=== PATIENT | male | born 1985 | race Caucasian/White ===

== ENCOUNTER 2025-02-13 10:33 | Observation (INO) ==
[2025-02-13] MEDS: ONDANSETRON ODT 4 MG TABLET TL STA (11:20)
[2025-02-13 11:36] LABS: BASOPHILS # (AUTO) 0.1 10^3/uL (0.0-0.1); BASOPHILS % (AUTO) 0.8 %; EOSINOPHILS # (AUTO) 0.1 10^3/uL (0.0-0.7); EOSINOPHILS % (AUTO) 1.2 %; HCT - HEMATOCRIT 44.4 % (42.0-52.0); HGB - HEMOGLOBIN 15.2 g/dL (14.0-18.0); LYMPHOCYTES # (AUTO) 2.1 10^3/uL (1.5-3.5); LYMPHOCYTES % (AUTO) 22.6 %; MEAN CORPUSCULAR HEMOGLOBIN 30.5 pg (27.0-31.0); MEAN CORPUSCULAR HGB CONC 34.2 g/dL (32.0-36.0); MEAN PLATELET VOLUME 8.5 fL (7.4-11.4); MONOCYTES # (AUTO) 0.8 10^3/uL (0.0-1.0); MONOCYTES % (AUTO) 8.1 %; NEUTROPHILS # (AUTO) 6.2 10^3/uL (1.5-6.6); NEUTROPHILS % (AUTO) 66.9 %; PLT - PLATELET COUNT 368 10^3/uL (130-450); RED BLOOD COUNT 4.99 10^6/uL (4.70-6.10); RED CELL DISTRIBUTION WIDTH 12.8 % (12.0-15.0); WHITE BLOOD COUNT 9.3 x10^3/uL (4.8-10.8)
[2025-02-13] MEDS: LORazepam 2 MG/ML VIAL IVP STA ×2 (11:44→11:46)
[2025-02-13] MEDS: SODIUM CHLORIDE 0.9% 1,000 ML IV STA (11:46)
--- NOTE | 2025-02-13 11:56 | ED Physician Documentation ---
History of Present Illness Stated complaint Stated Complaint: WITHDRAWL DETOX Chief complaint Chief Complaint: General History obtained from History obtained from: Patient History of Present Illness Timing: Prior to arrival Additonal information Additional information: Patient is a 39-year-old male presenting to the emergency department with alcohol with drawl concerns. He has past medical history of neurofibromatosis type I and a history of alcohol abuse. He was seen here in the emergency department yesterday for symptoms of low back pain. Patient at that time he eloped from the emergency department. He notes he did this because he was going into withdrawals yesterday. He notes his last drink was this morning. He usually drinks about 18 beers a day. He went to rehab about 2 months ago but started to drink late shortly after this. He notes he has had 1 seizure in the past when trying to withdraw and has been admitted to the hospital for this b efore. He has no fevers only persistent tremors at this time. He has had some persistent nausea and vomiting this morning unable to keep down any water. He denies any hallucinations. His last drink was this morning.He is on citalopram at home but is not on any other medications. Meds/Allgy Home Medications Ambulatory Orders Medication Instructions Recorded Confirmed No Known Home Medications 02/12/25 02/12/25 Allergies Allergies Allergy/AdvReac Type Severity Reaction Status Date / Time No Known Drug Allergies Allergy Verified 02/13/25 10:47 PFSH Active Problems All Active Problems (Updated 02/13/25 @ 13:38 by Carly Rivera PA-C) Alcohol withdrawal (Acute) Back pain (Acute) Social History Social History Do you feel safe in your home environment?: Yes Suffered physical, verbal, emotional, or financial abuse?: No Exam Exam Vital Signs: Vital Signs x48h Temp Pulse Resp BP Pulse Ox O2 Flow Rate 02/13/25 12:46 91 16 104/64 96 2 02/13/25 10:43 36.6 C 90 22 120/75 100 Constitutional normal general appearance HENMT normocephalic and head/scalp atraumatic Neck/C-Spine visual inspection normal Lymph no lymphadenopathy noted Chest inspection of chest normal Respiratory breath sounds equal bilaterally, normal respiratory effort and clear to auscultation bilaterally Cardiovascular normal heart rate noted, regular rhythm noted, no gallop, no rub and no murmur Gastrointestinal abdomen normal to inspection No abdominal tenderness at this time.Old surgical scar noted to left upper abdomen Genitourinary no CVA tenderness Back/Pelvis spine normal to inspection, no thoracic spine tenderness and no lumbar spine tenderness Psychiatry Patient appears anxious he is ANO x 3 he is answering questions appropriately but often looking around. Significant tremor noted on examination to bilateral upper and lower extremities. Patient unable to sit still here in the emergency department Results Vitals Vitals: Vital Signs - 24 hr 02/12/25 19:05 02/12/25 19:24 02/13/25 10:43 Temperature 36.6 C Temperature Source Temporal Artery Scan Pulse Rate 90 Respiratory Rate 22 Blood Pressure 120/75 O2 Saturation 100 O2 Source Room air Room air If not protocol: Oxygen Flow, liters/minute Pain Intensity 9 8 02/13/25 12:46 Temperature Temperature Source Pulse Rate 91 Respiratory Rate 16 Blood Pressure 104/64 O2 Saturation 96 O2 Source Nasal cannula If not protocol: Oxygen Flow, liters/minute 2 Pain Intensity Oxygen O2 Source Nasal cannula Labs Labs: Laboratory Tests 02/13/25 02/13/25 11:27 11:29 WBC 9.3 RBC 4.99 Hgb 15.2 Hct 44.4 MCV 89.0 MCH 30.5 MCHC 34.2 RDW 12.8 Plt Count 368 MPV 8.5 Neut # (Auto) 6.2 Lymph # (Auto) 2.1 [place] # (Auto) 0.8 Eos # (Auto) 0.1 Baso # (Auto) 0.1 Absolute Nucleated RBC 0.00 Nucleated RBC % 0.0 Sodium 141 Potassium 3.6 Chloride 102 Carbon Dioxide 25 Anion Gap 14.0 H BUN 13 Creatinine 0.8 Estimated GFR (MDRD) 109 Glucose 93 Calcium 9.5 Magnesium 2.0 Total Bilirubin 0.6 AST 12 ALT 13 Alkaline Phosphatase 70 Total Protein 7.2 Albumin 4.8 Globulin 2.4 Albumin/Globulin Ratio 2.0 Lipase 20 Ethyl Alcohol 178.1 PD Medical Decision Making ED course Complexity details: reviewed old records and reviewed results ED course: Patient is a 39-year-old male presenting to the emergency department with withdrawal symptoms last drink was this morning. He is a regular drinker with about 18 beers a day. He notes significant tremors at this time and has had a history of seizures with withdrawal. He notes history of neurofibromatosis and has been seen here yesterday but he eloped due to withdrawal symptoms at that time. Patient CIWA score of 20 on arrival. Basic labs obtained fluids started and a dose of Ativan 2 mg given here in the ED. Patient will most likely benefit from a CT scan of his lower spine to further evaluate possible mass at this time patient is having too significant tremors to obtain CT. Will monitor labs and assess if patient can be sent for CT here in the ED. Patient at 12:00 had an episode of hypoxia about 10 minutes after receiving Ativan 2 mg IV he was placed on 3 L nasal cannula I evaluated patient at this time and he is awake answering questions no acute distress will hold off on any flumenazil at this time. Patient was decreased to 2 L nasal cannula. Patient's labs returned no signs of white count he does have an anion gap of 14 he is receiving normal saline fluids most likely secondary to alcohol use and dehydration from persistent nausea and vomiting. Patient was given Zofran and banana bag here in the ED to help with withdrawal symptoms. His alcohol level returned at 178 although elevated could be low level for patient given history of 18 beers a day. Patient was given banana bag here in the ED he was weaned off of oxygen but remains fatigued and sleepy. Given high alcohol level and high CIWA score on evaluation here in the emergency department I recommend patient be admitted overnight for observation status given history of alcohol withdrawal and seizures. I discussed with Dr. Gera colby hospitalistWho recommends obtaining chest x-ray given hypoxia with small dose of Ativan here in the ED. However he is agreeable patient should be admitted to observation status and chest x-ray pending here in the ED.. Patient iis in agreement with this plan. Discharge Plan Discharge Patient Disposition: [facility] DC/Xfer Condition: Stable Clinical Impression: Alcohol withdrawal Prescriptions: No Action No Known Home Medications Print Language: Maldivian
[2025-02-13 11:59] LABS: ALBUMIN 4.8 g/dL (3.2-5.5); BILIRUBIN,TOTAL 0.6 mg/dL (0.2-1.0); CALCIUM 9.5 mg/dL (8.5-10.3); CREATININE 0.8 mg/dL (0.6-1.3); POTASSIUM 3.6 mmol/L (3.5-4.5); TOTAL PROTEIN 7.2 g/dL (6.4-8.9)
[2025-02-13] MEDS: THIAMINE INJ 100 MG, MAGNESIUM SULFATE 2 GM, MULTIVITAMIN 10 ML, FOLIC ACID INJ 1 MG in... IV STA (12:46)
--- NOTE | 2025-02-13 14:03 | XRAY Report ---
PROCEDURE: XR Chest 1V INDICATIONS: eval for hypoxia TECHNIQUE: One view of the chest was acquired. COMPARISON: None. FINDINGS: Surgical changes and devices: None. Lungs and pleura: No pleural effusions or pneumothorax. No consolidation. Mediastinum: Mediastinal contours appear normal. Heart size is normal. Bones and chest wall: No suspicious bony lesions. Overlying soft tissues appear unremarkable. IMPRESSION: No acute cardiopulmonary process. Reviewed by: Ricardo Mccracken MD on 02/13/2025 2:02 PM PDT Approved by: Ricardo Mccracken MD on 02/13/2025 2:02 PM PDT Station ID: [id number]
[2025-02-13] MEDS: chlordiazePOXIDE 25 MG CAPSULE PO SCH (15:31)
--- NOTE | 2025-02-13 15:49 | HISTORY & PHYSICAL EXAMINATION ---
<Statement entered by Edgardo Boss MD - 02/13/25 19:01> Pt examined and chart reviewed. I agree with the note below with the following additions and corrections. Pt is a bit of a vague historian. Tired during exam, but easily rousable to voice and give brief answers. 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 He has followed with neurosurgery outpt, reportedly had bx 1 yr ago but no follow up. Reports numbness in L leg. Denies drug use other than etoh. Notes he vapes. No known lung disease. Mils SOB, no cough. Notes chest pain across upper chest that is constant, not pleuritic. Feels tremulous but better after ativan in ED. Exam: young man lying in bed, NAD, sclera anicteric, MMM, LCTAB, nonlabored RRR, S1S2, no edema abd soft, NT, ND, BS+, no HSM Somnolent at times, easily rousable to voice, CN 2-12 intact, strength 5/5 UE, 5/5 ankle flexion and extension, mild tremor in hands, no tongue fasciculation. Yawning repeatedly throughout exam. labs and imaging reviewed. 1. etoh use d/o, etoh withdrawal: librium, ativan per CIWA, thiamine, MVI. Obtain Utox to ensure no other intoxication or withdrawal syndrome. 2. acute hypoxic respiratory failure: episode in ED of desat to 75% after getting ativan. Likely due to sedation from benzo and etoh intoxication. No evidence for lung disease by history, CXR clear, exam unremarkable. Now sat mid 90s on RA. If hypoxia recurs, consider further w/u, including r/o PE, vaping associated lung injury. 3. anion gap metabolic acidosis: ketosis from etoh. Cont ivf and trend BMP in am. 4. neurofibromatosis: no signs of spinal impingement. Needs outpt follow up. dvt ppx: lovenox Chief Complaint Chief Complaint Chief Complaint: Alcohol withdrawal, tremors, nausea History of Present Illness Admitted From Admitted From:: Temporary home History Obtained From Records Reviewed: [place] History obtained from: Patient and ED team Exam Limitations: Obtunded History of Present Illness HPI Comment/Other: Oniel is a 39-year-old male with a history of back pain and neurofibromatosis 1 being admitted today with tremors and nausea due to alcohol withdrawal. He reports that he has had seizures due to alcohol withdrawals in the past. The patient is not a reliable historian due to his current mental status. He last drank alcohol this morning, he reports. He reports having left-sided numbness from his hip down. He states that he recently went through rehabilitation in [place], [place]. The patient reported to ED medical team that he drinks 18 beers per day. He states that he does not have any family or friends who could be emergency contacts. Oniel reports that he currently lives in [place], but is staying with a friend temporarily on [facility]. He states his primary care doctor is in [place]. Meds/Allgy Home Medications Ambulatory Orders Medication Instructions Recorded Confirmed citalopram 20 mg tablet 10 mg PO DAILY 02/13/25 02/13/25 clonidine HCl 0.1 mg tablet 0.1 mg PO TID 02/13/25 02/13/25 ibuprofen 800 mg tablet 800 mg PO TID PRN pain 02/13/25 02/13/25 Allergies Allergies Allergy/AdvReac Type Severity Reaction Status Date / Time No Known Drug Allergies Allergy Verified 02/13/25 10:47 PFSH Active Problems All Active Problems (Updated 02/13/25 @ 16:07 by Aletha Kemp) Nausea (Acute) Nausea & vomiting (Acute Unknown) Tremor due to substance withdrawal (Acute) Alcohol withdrawal (Acute) Back pain (Acute) Social History Social History Smoking Status: Unknown if ever smoked Do you dip or chew tobacco?: No Relationship: Level: Assisted Do you feel safe in your home environment?: Yes Suffered physical, verbal, emotional, or financial abuse?: No Substance Use: denies use POLST Patient has POLST: No Review of Systems Status of ROS: unobtainable due to mental status (Patient was unable to complete ROS d/t mental status.) Gastrointestinal Reports: Nausea Musculoskeletal Reports: Other (Patient reports that he has left-sided numbness from his hip down.) Neurological Reports: Other (Patient reports history of seizures with alcohol withdrawal.) Prior Level of Functionality: Able; functioning without assistance. Exam Exam Vital Signs: Vital Signs x48h Temp Pulse Resp BP Pulse Ox O2 Flow Rate 02/13/25 14:00 95 16 109/63 94 02/13/25 12:46 91 16 104/64 96 2 02/13/25 10:43 36.6 C 90 22 120/75 100 Constitutional Patient is obtunded with slow speech, drowsy appearance, and repetitive yawning. HENMT Normocephalic. Moist mucus membranes. Eyes PERRL. EOMs intact. No nystagmus. Neck/C-Spine Normal visual inspection of C-spine. Respiratory Lungs clear on auscultation bilaterally. No wheezing, rhonchi, or rales. Cardiovascular RRR. Gastrointestinal Soft, non-tender, and no distention. Back/Pelvis Deferred. Extremities Normal inspection of extremities. No deformities. Neurology Bilateral hand tremors. Slow speech. 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 Psychiatry Decreased LOC. Skin [place] pallor. No rash or lesions. Conclusion/Plan Problem List (1) Alcohol withdrawal: Plan: Patient presented to ED with tremors and nausea. He reported a history of seizures from alcohol withdrawal. Patient's blood alcohol level was 178.1 mg/dL. He reported drinking this morning 02/13. His CIWA score in ED before administration of lorazepam was 20. He has been prescribed Ondansetron 4mg once, Librium 50mg PO Q8H, a [place] Rx 1 PO daily, and 1mg Lorazepam IVP Q30M PRN. He was given IV fluids. Additionally, he was given 100mg thiamine IV. A chest XR in the ED showed no cardiopulmonary pathologies. He will be monitored for clinical signs of improvement including decreased tremors, nausea, alert and calm LOC. Additionally, CIWA score decreased to 8 or below would be needed prior to discharge. Qualifiers: Complication of substance-induced condition: uncomplicated Qualified Code(s): F10.930 - Alcohol use, unspecified with withdrawal, uncomplicated (2) Back pain: Plan: The patient presented to the ED on 02/12 with a complaint of back pain, but eloped according to the emergency team. He returned to the ED on 02/13 due to symptoms of alcohol withdrawal. Physical exam was limited by the patient's decreased LOC. Patient was ambulatory in ED. Patient reported back pain with left-sided numbness from his hip down. He reported previously that he has been diagnosed with neurofibromatosis 1. The patient will be encouraged to follow up with his primary care provider. Qualifiers: Back pain laterality: unspecified Back pain location: low back pain C hronicity: unspecified Sciatica presence: without sciatica Qualified Code(s): M54.50 - Low back pain, unspecified Plan The goal of therapy is to prevent seizures and improve AW symptoms including tremors and nausea. A CIWA score of 8 or less along with clinical signs would indicate readiness to discharge. In addition, rehabilitation and following up with primary care should be discussed with the patient. Resources for basic necessities and possible care coordination should be discussed with the patient. Lab Results Lab results reviewed: Yes 02/13/25 11:29 02/13/25 11:29 Diagnostic Imaging Results Diagnostic Imaging Results: positive Final report reviewed
--- NOTE | 2025-02-13 16:31 | PHARMACY PROGRESS NOTE ---
Best Possible Medication History Admit Date and Time: 02/13/25 [id number] Home Medications Medication Instructions Recorded Confirmed Type citalopram 20 mg tablet 10 mg PO DAILY 02/13/25 02/13/25 History clonidine HCl 0.1 mg tablet 0.1 mg PO TID 02/13/25 02/13/25 History ibuprofen 800 mg tablet 800 mg PO TID PRN pain 02/13/25 02/13/25 History Processed by: Pharmacy (Medication reconciliation completed by Canoe Inspector FinalMicaela) Medications reviewed in ED?: No Medication History completed: Yes Patient Interview: Completed Secondary Source(s): Insurance records [facility] Statement: As the person ultimately responsible for medication therapy, providers are able to order a medication from an existing home medication list in [facility] via the "Reconcile Routine" prior to Confirmation of that medication by sales and support center agent. Such practice is discouraged except when the physician, in their clinical judgment, deems that a medical need exists for a medication without regard to previous use.
[2025-02-13] MEDS: LORazepam 2 MG/ML VIAL IVP PRN (20:37)
[2025-02-13] MEDS: ONDANSETRON 4 MG/2 ML VIAL IVP PRN (21:24)
[2025-02-13] MEDS: cloNIDine 0.1 MG TABLET PO SCH (21:34)
[2025-02-14] MEDS: ACETAMINOPHEN 325 MG TABLET PO PRN (00:27)
[2025-02-14 05:26] VITALS: TEMP 98.2
[2025-02-14 05:58] LABS: BASOPHILS # (AUTO) 0.1 10^3/uL (0.0-0.1); BASOPHILS % (AUTO) 0.8 %; EOSINOPHILS # (AUTO) 0.2 10^3/uL (0.0-0.7); EOSINOPHILS % (AUTO) 2.5 %; HCT - HEMATOCRIT 38.8 % (42.0-52.0); HGB - HEMOGLOBIN 13.1 g/dL (14.0-18.0); LYMPHOCYTES # (AUTO) 2.4 10^3/uL (1.5-3.5); LYMPHOCYTES % (AUTO) 26.1 %; MEAN CORPUSCULAR HEMOGLOBIN 31.3 pg (27.0-31.0); MEAN CORPUSCULAR HGB CONC 33.8 g/dL (32.0-36.0); MEAN CORPUSCULAR VOLUME 92.8 fL (80.0-94.0); MEAN PLATELET VOLUME 8.6 fL (7.4-11.4); MONOCYTES % (AUTO) 10.4 %; NEUTROPHILS # (AUTO) 5.4 10^3/uL (1.5-6.6); NEUTROPHILS % (AUTO) 59.8 %; PLT - PLATELET COUNT 284 10^3/uL (130-450); RED BLOOD COUNT 4.18 10^6/uL (4.70-6.10); WHITE BLOOD COUNT 9.1 x10^3/uL (4.8-10.8)
[2025-02-14 06:07] LABS: ALBUMIN 3.9 g/dL (3.2-5.5); ALBUMIN/GLOBULIN RATIO 2.2 (1.0-2.2); BILIRUBIN,TOTAL 1.6 mg/dL (0.2-1.0); CALCIUM 8.5 mg/dL (8.5-10.3); CREATININE 0.8 mg/dL (0.6-1.3); MAGNESIUM 2.2 mg/dL (1.7-2.3); POTASSIUM 3.7 mmol/L (3.5-4.5); TOTAL PROTEIN 5.7 g/dL (6.4-8.9)
[2025-02-14 07:15] LABS: BILIRUBIN,URINE NEGATIVE (NEGATIVE); GLUCOSE, URINE (UA) NEGATIVE (NEGATIVE); KETONES,URINE (UA) 15 mg/dL (NEGATIVE); LEUKOCYTE ESTERASE, URINE SMALL (NEGATIVE); NITRITE,URINE NEGATIVE (NEGATIVE); OCCULT BLOOD,URINE NEGATIVE (NEGATIVE); PROTEIN,URINE TRACE mg/dL (NEGATIVE); UROBILINOGEN,URINE 1 (NORMAL) E.U./dL (NORMAL)
[2025-02-14 07:24] LABS: AMPHETAMINE SCREEN,URINE NEGATIVE (NEGATIVE); BARBITURATE SCREEN,UR NEGATIVE (NEGATIVE); BENZODIAZEPINES SCREEN, URINE POSITIVE (NEGATIVE); BUPRENORPHINE SCREEN, URINE NEGATIVE (NEGATIVE); CLARITY,URINE HAZY (CLEAR); COCAINE SCREEN URINE NEGATIVE (NEGATIVE); METHADONE SCREEN, URINE NEGATIVE (NEGATIVE); METHAMPHETAMINES SCREEN, URINE NEGATIVE (NEGATIVE); OPIATE SCREEN, URINE NEGATIVE (NEGATIVE); OXYCODONE SCREEN, URINE NEGATIVE (NEGATIVE); TRICYCLIC ANTIDEPRESSANT,URINE NEGATIVE (NEGATIVE)
[2025-02-14 07:25] LABS: THC CANNABINOID SCREEN, URINE NEGATIVE (NEGATIVE)
[2025-02-14 07:33] LABS: BACTERIA,URINE Rare /HPF (None Seen); RBC,URINE None Seen /HPF (0-5); SQUAMOUS EPITHELIAL CELL,UR NONE SEEN (<= Few); WBC CLUMPS,URINE PRESENT; WBC,URINE >25 /HPF (0-3)
[2025-02-14 07:43] VITALS: BP 110/58; O2SAT 95
[2025-02-14] MEDS: THIAMINE 100 MG TABLET PO SCH (08:54)
[2025-02-14] MEDS: CITALOPRAM 10 MG TABLET PO SCH (08:54)
[2025-02-14] MEDS: PRENATAL VITAMIN TABLET PO SCH (08:54)
[2025-02-14] MEDS: ENOXAPARIN 40 MG/0.4 ML SYRINGE SUBQ SCH (08:55)
--- NOTE | 2025-02-14 15:22 | Discharge Summary ---
Discharge Summary Admit Date: 02/13/25 Discharge Date: 02/14/25 Discharging Provider: Edgardo Boss MD DIAGNOSES Admission Diagnoses: 1. etoh use disorder, abuse, withdrawal 2. acute hypoxic respiratory failure 3. anion gap metabolic acidosis 4. neurofibromatosis, sacral tumor Discharge Diagnoses with Status of Each Condition: 1. etoh use disorder, abuse, withdrawal 2. acute hypoxic respiratory failure, resolved 3. anion gap metabolic acidosis, resolved 4. neurofibromatosis, sacral tumor HPI History of Present Illness: 39-year-old male with a history of back pain and neurofibromatosis 1 being admitted today with tremors and nausea due to alcohol withdrawal. He reports that he has had seizures due to alcohol withdrawals in the past. The patient is not a reliable historian due to his current mental status. He last drank alcohol the morning of admission, he reports. He reports having left-sided numbness from his hip down, which is chronic. He states that he recently went through rehabilitation in [place], [place]. The patient reported to ED medical team that he drinks 18 beers per day. He states that he does not have any family or friends who could be emergency contacts. Oniel reports that he currently lives in [place], but is staying with a friend temporarily on [facility]. He states his primary care doctor is in [place]. HOSPITAL COURSE Hospital Course: 1. etoh use d/o, etoh withdrawal: Pt presented with tremulousness, irritability, and moderate withdrawal symptoms. He was treated with librium, ativan per CIWA, thiamine, MVI. A utox was negative aside from benzodiazepines, which he had received here. His symptoms improved quickly and he required infrequent prn ativan doses overniht. On day of discharge he feels much better. Up walking to bathroom without problems. Tolerating po intake. Notes he has not had a seizure in many years and he wishes to stop librium quickly and go home. We offered outpt addiction resources which pt declined. He was interested in trying gabapentin to help with addiction, as he did not tolerate naltrexone in the past 2. acute hypoxic respiratory failure: episode in ED of desat to 75% after getting ativan. Likely due to sedation from benzo and etoh intoxication. No evidence for lung disease by history, CXR clear, exam unremarkable. Shortly thereafter O2 sat mid 90s on RA and he remained stable on RA overnight. 3. anion gap metabolic acidosis: ketosis from etoh. Treated with iv fluid. Pt's po intake normalized. Anion gap resolved. 4. neurofibromatosis, sacral tumor: Pt noted chronic numbness extending down Left upper leg, no weakness. No signs of spinal impingement. Pt reports he had a biopsy last year and has plans to follow up with neurosurgery outpt. ALLERGIES Allergies Allergy/AdvReac Type Severity Reaction Status Date / Time No Known Drug Allergies Allergy Verified 02/13/25 10:47 MEDICATIONS Ambulatory Orders Medication Instructions Recorded Confirmed citalopram 20 mg tablet 10 mg PO DAILY 02/13/25 02/13/25 clonidine HCl 0.1 mg tablet 0.1 mg PO TID 02/13/25 02/13/25 ibuprofen 800 mg tablet 800 mg PO TID PRN pain 02/13/25 02/13/25 gabapentin 300 mg capsule 300 mg PO QPM #30 caps 02/14/25 PHYSICAL EXAM AT DISCHARGE Vital Signs: Vital Signs x48h Temp Pulse Resp BP Pulse Ox 02/14/25 07:42 36.8 C 71 16 110/58 L 95 young man lying in bed, NAD, sclera anicteric, MMM, LCTAB, nonlabored RRR, S1S2, no edema abd soft, NT, ND, BS+, no HSM AAOx3, CN 2-12 intact, strength 5/5 UE and LE bilat, no tremor, no tongue fasciculation. Sensation intact aside from reported decreased to light touch over L lateral thigh. LABS 02/14/25 05:49 02/14/25 05:49 TIME SPENT Time Spent in Discharge (Minutes): 25 Discharge Plan Discharge Patient Disposition: Home, Self Care Condition: Stable Medically Cleared Date:: 02/14/25 Prescriptions: New gabapentin 300 mg Capsule 300 mg PO QPM Qty: 30 0RF Continued clonidine HCl 0.1 mg tablet 0.1 mg PO TID ibuprofen 800 mg tablet 800 mg PO TID PRN (Reason: pain) citalopram 20 mg tablet 10 mg PO DAILY Diet: Regular Interventions: Discharge Last Done: 02/14/25 12:21 Discharge Checklist - Nursing Last Done: 02/14/25 12:21 Plan of Treatment: You have been started on a medicine called gabapentin to help with alcohol use. It is important for your health that you stop drinking alcohol. Contact your primary care provider or return to the hospital if you have seizure, severe tremor, confusion, falls, weakness, depressed mood or for any other concerns. Print Language: Pashto Patient Instructions: Addiction Recovery Stand Alone Forms: PCP List Follow-up Care: Primary Care [Other] (Make an appointment to see your primary care provider in 1-2 weeks. )
[2025-02-14] MEDS ORDERED: GABAPENTIN 300 MG CAPSULE PO SCH (21:00)
== END 2025-02-14 12:20 | disposition home or self-care (01) ==
LOC: ED 10:33 → MS3 10:33
PROVIDERS: ADMIT Student in an Organized Health Care Education/Training Program; ATTEND Student in an Organized Health Care Education/Training Program
DX: E86.0 Dehydration; J96.01 Acute respiratory failure with hypoxia; F10.139 Alcohol abuse with withdrawal, unspecified; E87.20 Acidosis, unspecified; M54.50 Low back pain, unspecified; Y90.6 Blood alcohol level of 120-199 mg/100 ml; F17.290 Nicotine dependence, other tobacco product, uncomplicated; Q85.01 Neurofibromatosis, type 1